=== PATIENT | male | born 1960 | race Caucasian/White ===

== ENCOUNTER 2018-04-05 06:42 | Inpatient (IN) ==
--- NOTE | 2018-04-04 23:32 | Discharge Summary ---
<Miladis Umaña - Last Filed: 04/04/18 23:29> Date of Encounter: 04/04/18 - Discharge Diagnosis (1) Loosening of shoulder joint prosthesis Priority: Primary Status: Acute Qualifiers: Encounter type: initial encounter Qualified Code(s): T84.038A - Mechanical loosening of other internal prosthetic joint, initial encounter; Z96.619 - Presence of unspecified artificial shoulder joint (2) Status post reverse total replacement of left shoulder Priority: Primary Status: Acute (3) Hx of shoulder replacement Priority: Primary Status: Acute Qualifiers: Laterality: left Qualified Code(s): Z96.612 - Presence of left artificial shoulder joint (4) COPD (chronic obstructive pulmonary disease) Priority: Secondary Status: Chronic Qualifiers: COPD type: unspecified COPD Qualified Code(s): J44.9 - Chronic obstructive pulmonary disease, unspecified (5) Hyperlipidemia Priority: Secondary Status: Chronic Qualifiers: Hyperlipidemia type: unspecified Qualified Code(s): E78.5 - Hyperlipidemia , unspecified (6) Hypertension Priority: Secondary Status: Chronic Qualifiers: Hypertension type: essential hypertension Qualified Code(s): I10 - Essential (primary) hypertension (7) Nicotine dependence Priority: Secondary Status: Chronic Qualifiers: Nicotine product type: unspecified Substance use status: uncomplicated Qualified Code(s): F17.200 - Nicotine dependence, unspecified, uncomplicated (8) PVD (peripheral vascular disease) Priority: Secondary Status: Chronic (9) CVA (cerebral vascular accident) Priority: Secondary Status: Chronic Qualifiers: CVA mechanism: unspecified Qualified Code(s): I63.9 - Cerebral infarction, unspecified (10) Seizure disorder Priority: Secondary Status: Chronic (11) CAD (coronary artery disease) Priority: Secondary Status: Chronic Qualifiers: Coronary Disease-Associated Artery/Lesion type: unspecified vessel or lesion type [place] vs. transplanted heart: [place] heart Associated angina: angina presence unspecified Qualified Code(s): I25.10 - Atherosclerotic heart disease of [place] coronary artery without angina pectoris (12) Pacemaker Priority: Secondary Status: Chronic - Hospital Course Hospital course: Mr. Quinteros is a 57 year old male - Time Spent with Patient Total time spent providing and/or coordinating discharge services: - Discharge Medications Home Medications: OxyCODONE Immed Rel [Roxicodone 5 MG] 5 mg PO Q6HR PRN 7 Days #28 tablet [Rx] Aripiprazole [Abilify] 15 mg PO HS 04/05/18 [History] Bisoprolol/HCTZ 5/6.25 [Ziac 5/6.25] 1 each PO DAILY 04/05/18 [History] Citalopram Hydrobromide [Citalopram HBr] 40 mg PO DAILY 04/05/18 [History] Clopidogrel [Plavix] 75 mg PO DAILY 04/05/18 [History] Dicyclomine [Bentyl] 10 mg PO TID 04/05/18 [History] Docusate Sodium [Dok] 100 mg PO BID 04/05/18 [History] Fenofibrate,Micronized [Fenofibrate] 130 mg PO DAILY 04/05/18 [History] Fluticasone Propionate Nasal [Flonase] 1 spr NS BID PRN 04/05/18 [History] Folic Acid 1 mg PO DAILY 04/05/18 [History] Gabapentin [Neurontin] 600 mg PO BID 04/05/18 [History] HYDROcodone/Acet 7.5/325 mg [[place] 7.5-325 mg] 1 tab PO QID PRN 04/05/18 [ History] Loratadine [Claritin] 10 mg PO DAILY 04/05/18 [History] Rosuvastatin Calcium 40 mg PO HS 04/05/18 [History] Sennosides [Senna] 8.6 mg PO DAILY 04/05/18 [History] Tamsulosin [Flomax] 0.4 mg PO DAILY 04/05/18 [History] Varenicline Tartrate [Chantix] 1 tab PO BID 04/05/18 [History] lamoTRIgine [Lamotrigine] 200 mg PO DAILY 04/05/18 [History] Allergies/Adverse Reactions: 3 Allergy/AdvReac Type Severity Reaction Status Date / Time trazodone AdvReac lethargy Verified 04/05/18 08:16 Primary care physician: Goldy Eric, - Patient Status Disposition: Home, Self-Care Condition: Good - Discharge Instructions Follow Up With: Goldy Eric MD [Primary Care Provider] - <Ac Patel - Last Filed: 04/06/18 06:57> Orders not resulted at time of discharge: Pending orders 04/05/18 00:01 XR shoulder complete LT [XR] Routine H/H [Hemoglobin and Hematocrit] [HEME] Routine Date of Encounter: 04/06/18 Time of Encounter: 06:56 - Discharge Diagnosis (1) Hx of shoulder replacement Priority: Secondary Status: Chronic Qualifiers: Laterality: left Qualified Code(s): Z96.612 - Presence of left artificial shoulder joint (2) COPD (chronic obstructive pulmonary disease) Priority: Secondary Status: Chronic Qualifiers: COPD type: unspecified COPD Qualified Code(s): J44.9 - Chronic obstructive pulmonary disease, unspecified (3) Hyperlipidemia Priority: Secondary Status: Chronic Qualifiers: Hyperlipidemia type: unspecified Qualified Code(s): E78.5 - Hyperlipidemia , unspecified (4) Hypertension Priority: Secondary Status: Chronic Qualifiers: Hypertension type: essential hypertension Qualified Code(s): I10 - Essential (primary) hypertension (5) Nicotine dependence Priority: Secondary Status: Chronic Qualifiers: Nicotine product type: unspecified Substance use status: uncomplicated Qualified Code(s): F17.200 - Nicotine dependence, unspecified, uncomplicated (6) PVD (peripheral vascular disease) Priority: Secondary Status: Chronic (7) CVA (cerebral vascular accident) Priority: Secondary Status: Chronic Qualifiers: CVA mechanism: unspecified Qualified Code(s): I63.9 - Cerebral infarction, unspecified (8) Seizure disorder Priority: Secondary Status: Chronic (9) CAD (coronary artery disease) Priority: Secondary Status: Chronic Qualifiers: Coronary Disease-Associated Artery/Lesion type: unspecified vessel or lesion type [place] vs. transplanted heart: [place] heart Associated angina: angina presence unspecified Qualified Code(s): I25.10 - Atherosclerotic heart disease of [place] coronary artery without angina pectoris (10) Pacemaker Priority: Secondary Status: Chronic (11) Loosening of shoulder joint prosthesis Priority: Secondary Status: Chronic Qualifiers: Encounter type: subsequent encounter Qualified Code(s): T84.038D - Mechanical loosening of other internal prosthetic joint, subsequent encounter; Z96.619 - Presence of unspecified artificial shoulder joint - Hospital Course Hospital course: Mr. Quinteros is a 57 year old male Status post revision left total shoulder replacement. The patient had an uneventful postoperative course. They received antibiotics and physical therapy and were discharged in stable condition. There will follow -up in the office in 2 weeks. - Time Spent with Patient Total time spent providing and/or coordinating discharge services: Primary care physician: Goldy Eric, - Patient Status Functional capacity at discharge: independent ambulation Overall status at discharge: patient is progressing back to baseline
--- NOTE | 2018-04-05 06:52 | History & Physical Report ---
Date of Encounter: 04/05/18 Time of Encounter: 06:52 24 Hour HP Update - Instructions Instructions: If the History and Physical is less than 30 days old and was completed prior to A.M. admission and or procedure and has NOT been updated on calendar day of procedure please complete this update prior to performing procedure. - Update Patient reports changes in Medical Condition: No Changes in examination, assessment, or condition: No Changes in Medication: No Preop tests/diagnostics Reviewed: Yes Surgery Remains Indicated: Yes Consent for Planned Operative Procedure(s) Verified: Yes - Pre-Operative Checklist Preoperative Checklist Indicated: No Prophylactic Antibiotic Ordered: Yes Is VTE Prophylaxis Indicated?: Yes
[2018-04-05] MEDS ORDERED: CeFAZolin Syr 2,000MG/20 ML 2,000 MG/20 ML SYRINGE IVPB ONE (07:59)
[2018-04-05] MEDS ORDERED: Albuterol 2.5 MG/3 ML NEBULIZER IH ONE (07:59)
[2018-04-05] MEDS ORDERED: Ringers Solution, Lactated 1,000 ML IVC SCH ×2 (08:00→12:52)
--- NOTE | 2018-04-05 08:32 | Anesthesia Evaluation PreOp ---
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: Seizures (last seizure more than 1 year ago, well controlled on medication), CVA (residual LUE weakness, plavix stopped 10 days) Other Medical History: Renal (H/O kidney stones), GERD Anesthesia History: No Prior Anesthetic Complications, Past Anesthesia Alcohol Use: none (quit heavy use 24 years ago) Drug use: other Medications and Allergies OxyCODONE Immed Rel [Roxicodone 5 MG] 5 mg PO Q6HR PRN 7 Days #28 tablet [Rx] Aripiprazole [Abilify] 15 mg PO HS 04/05/18 [History] Bisoprolol/HCTZ 5/6.25 [Ziac 5/6.25] 1 each PO DAILY 04/05/18 [History] Citalopram Hydrobromide [Citalopram HBr] 40 mg PO DAILY 04/05/18 [History] Clopidogrel [Plavix] 75 mg PO DAILY 04/05/18 [History] Dicyclomine [Bentyl] 10 mg PO TID 04/05/18 [History] Docusate Sodium [Dok] 100 mg PO BID 04/05/18 [History] Fenofibrate,Micronized [Fenofibrate] 130 mg PO DAILY 04/05/18 [History] Fluticasone Propionate Nasal [Flonase] 1 spr NS BID PRN 04/05/18 [History] Folic Acid [Folic Acid] 1 mg PO DAILY 04/05/18 [History] Gabapentin [Neurontin] 600 mg PO BID 04/05/18 [History] HYDROcodone/Acet 7.5/325 mg [[place] 7.5-325 mg] 1 tab PO QID PRN 04/05/18 [ History] Loratadine [Claritin] 10 mg PO DAILY 04/05/18 [History] Rosuvastatin Calcium [Rosuvastatin Calcium] 40 mg PO HS 04/05/18 [History] Sennosides [Senna] 8.6 mg PO DAILY 04/05/18 [History] Tamsulosin [Flomax] 0.4 mg PO DAILY 04/05/18 [History] Varenicline Tartrate [Chantix] 1 tab PO BID 04/05/18 [History] lamoTRIgine [Lamotrigine] 200 mg PO DAILY 04/05/18 [History] 3 Allergy/AdvReac Type Severity Reaction Status Date / Time trazodone AdvReac lethargy Verified 04/05/18 08:16 - Meds/Allergy Pre-op Review Medications Reviewed: Yes Allergies Reviewed: Yes Beta Blockers on Current Med List: Yes If Beta Blockers taken, Date/Time (Last Dose taken): 04/05/2018 at 0530 Anesthesia Results - Labs Laboratory Tests 03/31/18 03/31/18 03/31/18 15:28 15:28 15:28 WBC 6.9 Hgb 12.3 L Hct 38.9 Plt Count 249 PT 12.1 INR 1.1 APTT 38.1 H Sodium 136 Potassium 3.8 BUN 20 Creatinine 0.98 - Imaging EKG: report reviewed (04/05/2018 electronic atrial pacemaker) Anesthesia Exam O2 Sat Height 1.78 m Height 1.78 m Weight 75.296 kg Weight 75.296 kg O2 Sat by Pulse Oximetry 97 Vital Signs Temp Pulse Resp BP Pulse Ox 98.0 F 60 18 129/80 97 04/05/18 07:19 04/05/18 07:19 04/05/18 07:19 04/05/18 07:19 04/05/18 07:19 Height: 5'10" Weight: 166 lbs NPO (# of Hours): 8 Pain Scale: 0 Pain Scale Used: Numeric (1 - 10) - HEENT Pupil (Motor): EOMI Mallampati: II Teeth: Edentulous Denture Type: Upper: Complete, Lower: Complete Oral Opening: Greater than 3 - ANIMAL TRAPPER LOC: Oriented ANIMAL TRAPPER Motor: Normal RUE, Normal RLE, Normal LLE, Normal Face, Deficit LUE ANIMAL TRAPPER Sensory: Normal: RUE, LUE, RLE, LLE, Face - Cardiac Rhythm: Regular Murmur: None - Pulmonary Breath Sounds: bilateral Clear Respiratory Effort: Symmetrical Anesthesia Assess/Plan ASA Score: 4 Modified [place] Scale for Level of Consciousness: Cooperative, oriented, and tranquil Anesthetic Plan: General, Regional Monitoring Plan: Standard Monitors Recovery Plan: PACU
[2018-04-05] MEDS ORDERED: Bupivacaine/Clonidine Syringe 1 EACH SYRINGE ONE (09:18)
[2018-04-05] MEDS ORDERED: ROPIVACAINE HCL/PF 0.5% 30 ML VIAL ONE (09:18)
[2018-04-05] MEDS ORDERED: Dexamethasone 4 MG/ML VIAL ONE (09:19)
[2018-04-05] MEDS ORDERED: Ethanol\\Acetic Acid\\Na Ace\\Ben 1,000 ML IRRIG.SOLN IR ONE (09:32)
--- NOTE | 2018-04-05 09:44 | Anesthesia Procedures ---
Date of Encounter: 04/05/18 Time of Encounter: 09:42 Procedures: Anesthesia - Nerve Block Procedure Date: 04/05/18 Time: 09:42 Allergies/Adv Reactions: trazadone Pre-op Diagnosis: L shoulder aseptic loosening Surgical Procedure: L TSR, revision Checklist: Correct Patient Identifier, Correct procedure, History checked Correct side: Left Blood Thinner: No Monitor Applied: EKG, BP, Pulse Oximetry Supplemental Oxygen via Nasal Cannula (L/min): 3 Sedation: Versed (mg): 2 Sedation: Fentanyl (mcg): 100 Indication: Post Op Analgesia (requested by Dr. Patel) Pre-op Neuro Deficits: Yes (LUE weakness from previous CVA) Block Type: Supraclavicular, Other (ICB, SCP) Catheter placed: No Sterile Technique: Yes Ultrasound used: Yes Anatomy identified: Yes Visual spread of Local: Yes Neuro Stimulation: No Blood on Needle Aspiration: No Smooth Injection of Local: Yes Pain with Injection of Local: No Prep: Chlorhexadine Needle: 22 x 50 mm Stimuplex Local: 0.25% Bupivicaine w/Clonidine 20 mcg/cc, Ropivacaine (0.5%, 30mL) Volume (cc): 7.5mL SCP, 7.5mL ICB Number of Attempts: 1 Complications: None/effective block Vitals: please see "holding vital signs" note
[2018-04-05] MEDS ORDERED: *HR* OxyCODONE Immed Rel 5 MG TABLET PO PRN (09:47)
[2018-04-05] MEDS ORDERED: Lidocaine -MPF 2% 2 ML VIAL ONE (10:12)
[2018-04-05] MEDS ORDERED: *HR* Midazolam HCl 2 MG/2 ML VIAL ONE (10:12)
[2018-04-05] MEDS ORDERED: *HR* Succinylcholine 200 MG/10 ML VIAL IVP ONE (10:12)
[2018-04-05] MEDS ORDERED: *HR* Propofol 200 MG/20 ML VIAL IVP ONE (10:12)
[2018-04-05] MEDS ORDERED: Lidocaine -MPF 4% 5 ML AMPUL ONE (10:12)
[2018-04-05] MEDS ORDERED: *HR* FentaNYL (PF) 100 MCG/2 ML VIAL ONE (10:12)
[2018-04-05] MEDS ORDERED: *HR* PHENYLEPHRINE 1,000 MCG/10 ML SYRINGE IVP ONE (10:21)
[2018-04-05] MEDS ORDERED: EPHEDrine 50 MG/ML VIAL ONE (10:28)
[2018-04-05] MEDS ORDERED: Ondansetron 4 MG/2 ML VIAL ONE (11:17)
--- NOTE | 2018-04-05 11:28 | Orthopedic Operative Note ---
Date of procedure: 04/05/18 Pre-op diagnosis: Aseptic loosening left total shoulder Post-op diagnosis: same Procedure: Procedure: Left Revision Total Shoulder replacement reverse Estimated blood loss: 100 cc Hardware: Arthrex: Metal and plastic: 42+4 sphere, large baseplate, one 6.5 locking screw, 2, 4.5 locking screws. 11 humeral stem 9 metal spacer 3 constrained Patricia spacer Procedural Notes:Loosening of glenoid component. Operative procedure: The patient was brought to the operating room and placed on the operating room table. The patient was placed in the modified beachchair position. All pressure points were padded appropriately. And the head was stabilized in the neutral position. The operative extremity was prepped and draped in the sterile surgical fashion. The patient received IV antibiotics prior to skin incision. A standard deltopectoral approach was made to the operative shoulder. Incision was made through the old incision, through the skin and subcutaneous tissue, hemo stasis was obtained with Bovie cautery. Using careful blunt dissection the deltopectoral interval was developed and the clavipectoral fascia was incised. An extensive debridement was performed, and the shoulder was dislocated. The humeral component was disassembled, and the humeral stem was removed without incident. Attention was then turned to the glenoid component was removed with the extractor it was grossly loose. Extensive debridement of the glenoid was performed the glenoid guide was positioned and inferior position was prepared first with the post reamer followed by the peripheral reamer. The large baseplate was seated and secured with a central 35 compression screw 6.5 in diameter, and 2.5 locking screws. Prior to seating the baseplate the defect behind baseplate was packed with bone and cancellus chips. The 42 Rosa V was seated and secured with the Perez taper. The humerus was broached up to its appropriate size 11 in 20 degrees of retroversion. Trial reduction found the shoulder to be relocatable. Trial components were removed, real implants were seated. Trial reduction found the shoulder to be stable with the 9 metal spacer and 3 constrained Patricia spacer implants. The trial implants were removed the real implants were seated and secured in the shoulder was reduced. The patient had excellent motion and excellent stability no shuck. The shoulder was closed by the PA. The deep tissue was irrigated with pulse irrigation deltopectoral interval was closed with #2 PDS suture over Gelfoam soaked in vancomycin. Superficially the subcutaneous tissue was closed with 0 PDS suture, the skin was closed with Dermabond. The patient placed sterile dressing, postoperative brace extubated and transferred to the recovery room in stable condition. Anesthesia: AYDEA Surgeon: Ac Patel Was there an medical administrative assistant present: Yes Offset Duplicating Machine Operator: Denae Mace Estimated blood loss (cc): 100 Condition: stable Disposition: PACU
[2018-04-05 12:12] LABS: Hematocrit 34.8 % (37.5-50.1); Hemoglobin 11.3 g/dL (12.9-16.9)
[2018-04-05] MEDS ORDERED: Fluticasone Propionate Nasal 50 MCG/SPRAY BOTTLE NS PRN (12:52)
[2018-04-05] MEDS ORDERED: Naloxone 0.4 MG/ML INJ IVP PRN (12:52)
[2018-04-05] MEDS ORDERED: Ondansetron 4 MG/2 ML VIAL IVP PRN (12:52)
[2018-04-05] MEDS ORDERED: Sennosides 8.6 MG TABLET PO PRN (12:52)
[2018-04-05] MEDS ORDERED: traMADol 50 MG TABLET PO PRN (12:52)
[2018-04-05] MEDS ORDERED: *HR* OxyCODONE/APAP 5/325 TABLET PO PRN (12:52)
[2018-04-05] MEDS ORDERED: MOM Conc 10 ML UD.LIQ PO PRN (12:52)
[2018-04-05] MEDS ORDERED: Temazepam 15 MG CAPSULE PO PRN (12:52)
--- NOTE | 2018-04-05 14:04 | Physician Discharge Referral ---
Home Health/Hosp Referral Info Transfer to: Home Health Attending Provider: Provider in Charge Post Discharge: PCP - Diagnosis (1) Loosening of shoulder joint prosthesis Priority: Primary Status: Chronic (2) Status post reverse total replacement of left shoulder Priority: Primary Status: Acute (3) Hx of shoulder replacement Priority: Primary Status: Chronic (4) COPD (chronic obstructive pulmonary disease) Priority: Secondary Status: Chronic (5) Hyperlipidemia Priority: Secondary Status: Chronic (6) Hypertension Priority: Secondary Status: Chronic (7) Nicotine dependence Priority: Secondary Status: Chronic (8) PVD (peripheral vascular disease) Priority: Secondary Status: Chronic (9) CVA (cerebral vascular accident) Priority: Secondary Status: Chronic (10) Seizure disorder Priority: Secondary Status: Chronic (11) CAD (coronary artery disease) Priority: Secondary Status: Chronic (12) Pacemaker Priority: Secondary Status: Chronic (13) Chronic pain Priority: Secondary Status: Chronic - Respiratory Orders None Smoking Cessation: Smoking cessation has been advised. For more information, call the [employer] Tobacco Quit Line at 6-261-UHSV-NOW. - Diet/Nutrition Diet/Nutrition Orders: Regular - Activity Activity Orders: Up ad maryanne, Ambulate - Services Needed Following services are medically necessary services: Nursing, Home Health Aide, Occupational Therapy Home Care Orders: Rehab orders for total shoulder: PT/OT. NO SHOULDER MOTION, ELBOW MOTION OK. Hand/Processing Spec motion ok. NWB to affected upper extremity. Follow Shoulder Precautions x 6 weeks. Stay in brace during activity and at night. ICE and elevate extremity frequently throughout the day. Treatments: [place] in place, plan to remove at post-operative day #14-16. Opsite placed. Keep dressing intact until first follow up appointment. If > 50% saturated, notify office, remove dressing and place appropriate dressing back in place. Leave Zipline intact. Opsite dressing is water resistant, not water- proof. OK to shower, but do not get dressing wet. - Transfer Medications Home Medications: OxyCODONE Immed Rel [Roxicodone 5 MG] 5 mg PO Q6HR PRN 7 Days #28 tablet [Rx] Aripiprazole [Abilify] 15 mg PO HS 04/05/18 [History] Bisoprolol/HCTZ 5/6.25 [Ziac 5/6.25] 1 each PO DAILY 04/05/18 [History] Citalopram Hydrobromide [Citalopram HBr] 40 mg PO DAILY 04/05/18 [History] Clopidogrel [Plavix] 75 mg PO DAILY 04/05/18 [History] Dicyclomine [Bentyl] 10 mg PO TID 04/05/18 [History] Docusate Sodium [Dok] 100 mg PO BID 04/05/18 [History] Fenofibrate,Micronized [Fenofibrate] 130 mg PO DAILY 04/05/18 [History] Fluticasone Propionate Nasal [Flonase] 1 spr NS BID PRN 04/05/18 [History] Folic Acid 1 mg PO DAILY 04/05/18 [History] Gabapentin [Neurontin] 600 mg PO BID 04/05/18 [History] HYDROcodone/Acet 7.5/325 mg [[place] 7.5-325 mg] 1 tab PO QID PRN 04/05/18 [ History] Loratadine [Claritin] 10 mg PO DAILY 04/05/18 [History] Rosuvastatin Calcium 40 mg PO HS 04/05/18 [History] Sennosides [Senna] 8.6 mg PO DAILY 04/05/18 [History] Tamsulosin [Flomax] 0.4 mg PO DAILY 04/05/18 [History] Varenicline Tartrate [Chantix] 1 tab PO BID 04/05/18 [History] lamoTRIgine [Lamotrigine] 200 mg PO DAILY 04/05/18 [History] Allergies/Adverse Reactions: 3 Allergy/AdvReac Type Severity Reaction Status Date / Time trazodone AdvReac lethargy Verified 04/05/18 08:16 Certification: Further, I certify that my clinical findings support that this patient is homebound (i.e. absences from home require considerable and taxing effort and are for medical reasons or hoahaoism services or infrequently or short duration when for other reasons) because: Homebound Reason: Post-surgery restriction and or conditions limit ability to leave home, Leaving home requires considerable and taxing effort due to condition Attestation: My signature below is to certify that this patient is under my care and that I, or nurse practitioner, or a physician's phlebotomist medical lab assistant working with me, has a face-to -face encounter with this patient.
--- NOTE | 2018-04-05 14:50 | Anesthesia Evaluation Post Op ---
Date of Encounter: 04/05/18 Time of Encounter: 12:30 - Vital Signs Vital Signs: Vital Signs Temp Pulse Resp BP Pulse Ox 04/05/18 12:21 97.7 F 64 16 124/75 98 04/05/18 12:11 67 16 120/74 95 04/05/18 12:01 97.7 F 69 16 117/71 98 04/05/18 11:51 74 16 121/84 98 04/05/18 11:41 80 16 127/87 98 04/05/18 11:31 97.8 F 87 16 137/79 100 Intake and Output 04/04/18 04/05/18 04/05/18 23:59 07:59 15:59 Intake Total 20 / 20 Output Total 100 / 100 Balance -80 / -80 Intake: IV Fluids 20 / 20 Ancef Syringe 2,000 MG/20 ML 2, 20 / 20 000 mg In 20 ml @ 200 mls/hr IVPB PREOP ONE Rx#:[id number] Output: Estimated Blood Loss 100 / 100 Other: Weight 75.296 kg Patient Weight 04/05/18 23:59 Weight 75.296 kg - Lungs Lungs: Clear Ascult./Percussion - Airway Airway: Non-obstructed - Cardiovascular Regular Rate - Mental Status Mental Status: Alert & Oriented, Answers Appropriately - Pain Pain Scale: 5 Pain Scale used: Numeric (1 - 10) - Nausea Vomiting Nausea Vomiting: Not Present - Hydration Hydration: Tolerates oral liquids, Has not voided - Discharge PostOp Status: Transfer Patient to floor Anes Supervising Prov Stmt: Pt seen/evaluated, VSS and pt has met criteria for discharge to home. - MD Randall
--- NOTE | 2018-04-05 16:22 | Electrocardiograph Report ---
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
[2018-04-05] MEDS: *HR* Enoxaparin 30 MG/0.3 ML SYRINGE SQ SCH (16:57)
[2018-04-05] MEDS: *HR* OxyCODONE Immed Rel 5 MG TABLET PO PRN (17:04)
[2018-04-05] MEDS ORDERED: *HR* Enoxaparin 30 MG/0.3 ML SYRINGE SQ SCH (18:00)
[2018-04-05] MEDS: Gabapentin 300 MG CAPSULE PO SCH (20:26)
[2018-04-05] MEDS ORDERED: ARIPiprazole 10 MG TABLET PO SCH (21:00)
[2018-04-06 02:08] LABS: Hematocrit 31.8 % (37.5-50.1); Hemoglobin 10.2 g/dL (12.9-16.9)
[2018-04-06] MEDS: *HR* Enoxaparin 30 MG/0.3 ML SYRINGE SQ SCH (05:09)
--- NOTE | 2018-04-06 06:58 | Orthopedics Progress Note ---
Date of Encounter: 04/06/18 Time of Encounter: 06:57 - Assessment and Plan (1) Hx of shoulder replacement Current Visit: No Status: Chronic Qualifiers: Laterality: left Qualified Code(s): Z96.612 - Presence of left artificial shoulder joint (2) COPD (chronic obstructive pulmonary disease) Current Visit: No Status: Chronic Qualifiers: COPD type: unspecified COPD Qualified Code(s): J44.9 - Chronic obstructive pulmonary disease, unspecified (3) Hyperlipidemia Current Visit: No Status: Chronic Qualifiers: Hyperlipidemia type: unspecified Qualified Code(s): E78.5 - Hyperlipidemia , unspecified (4) Hypertension Current Visit: No Status: Chronic Qualifiers: Hypertension type: essential hypertension Qualified Code(s): I10 - Essential (primary) hypertension (5) Nicotine dependence Current Visit: No Status: Chronic Qualifiers: Nicotine product type: unspecified Substance use status: uncomplicated Qualified Code(s): F17.200 - Nicotine dependence, unspecified, uncomplicated (6) PVD (peripheral vascular disease) Current Visit: No Status: Chronic (7) CVA (cerebral vascular accident) Current Visit: No Status: Chronic Qualifiers: CVA mechanism: unspecified Qualified Code(s): I63.9 - Cerebral infarction, unspecified (8) Seizure disorder Current Visit: No Status: Chronic (9) CAD (coronary artery disease) Current Visit: No Status: Chronic Qualifiers: Coronary Disease-Associated Artery/Lesion type: unspecified vessel or lesion type [place] vs. transplanted heart: hoh heart Associated angina: angina presence unspecified Qualified Code(s): I25.10 - Atherosclerotic heart disease of hoh coronary artery without angina pectoris (10) Pacemaker Current Visit: No Status: Chronic (11) Loosening of shoulder joint prosthesis Current Visit: No Status: Chronic Qualifiers: Encounter type: subsequent encounter Qualified Code(s): T84.038D - Mechanical loosening of other internal prosthetic joint, subsequent encounter; Z96.619 - Presence of unspecified artificial shoulder joint Subjective Interval history: Patient was seen this morning doing well without complaints. Afebrile vital signs stable. Operative extremity: Neurovascularly intact Dressing clean dry and intact [place] nontender Assessment and plan: Continue with postoperative care Hematocrit 31 discharged today Objective Vital signs: Vital Signs Temp Pulse Resp BP Pulse Ox 04/06/18 06:36 96.7 F L 100 13 127/55 92 04/06/18 03:23 98.1 F 57 16 136/81 95 04/05/18 23:11 98.2 F 66 16 136/70 94 04/05/18 18:16 97.9 F 80 93 111/70 04/05/18 16:14 97.8 F 65 16 96/58 93 04/05/18 15:23 97.6 F 69 18 107/69 97 04/05/18 14:01 97.6 F 66 18 96/61 95 04/05/18 13:20 97.8 F 74 18 105/68 96 04/05/18 12:53 95 04/05/18 12:40 97.7 F 61 18 105/63 93 04/05/18 12:21 97.7 F 64 16 124/75 98 04/05/18 12:11 67 16 120/74 95 04/05/18 12:01 97.7 F 69 16 117/71 98 04/05/18 11:51 74 16 121/84 98 04/05/18 11:41 80 16 127/87 98 04/05/18 11:31 97.8 F 87 16 137/79 100 04/05/18 09:57 62 116/74 97 04/05/18 09:41 60 120/75 97 04/05/18 09:32 60 137/96 96 04/05/18 08:33 18 129/80 97 04/05/18 07:19 98.0 F 60 18 129/80 97 Intake and Output 04/05/18 04/05/18 04/06/18 15:59 23:59 07:59 Intake Total 20 / 20 350 / 350 100 / 100 Output Total 100 / 100 Balance -80 / -80 350 / 350 100 / 100 Intake: IV Fluids 20 / 20 100 / 100 100 / 100 Ancef Syringe 2,000 MG/20 ML 2, 20 / 20 000 mg In 20 ml @ 200 mls/hr IVPB PREOP ONE Rx#:[id number] Ancef 2,000 MG In 0.9 % Sodium 100 / 100 100 / 100 Chloride 100 ML @ 200 mls/hr IVPB Q8H GAIL Rx#:[id number] Oral 250 / 250 Output: Estimated Blood Loss 100 / 100 Other: # Voids 1 1 1 - Labs CBC & BMP: 04/06/18 01:03 Labs: Abnormal lab results Hgb 10.2 g/dL (12.9-16.9) L 04/06/18 01:03 Hct 31.8 % (37.5-50.1) L 04/06/18 01:03 - VTE Documentation of Mechanical Device: Venous foot pump, device Consult Discharge Plan - Plan Referrals: Goldy Eric MD [Primary Care Provider] -
[2018-04-06] MEDS: Gabapentin 300 MG CAPSULE PO SCH (08:57)
[2018-04-06] MEDS ORDERED: Loratadine 10 MG TABLET PO SCH (09:00)
[2018-04-06] MEDS ORDERED: Folic Acid 1 MG TABLET PO SCH (09:00)
[2018-04-06] MEDS ORDERED: lamoTRIgine 100 MG TABLET PO SCH (09:00)
[2018-04-06] MEDS ORDERED: Bisoprolol/HCTZ 5/6.25 TABLET PO SCH (09:00)
[2018-04-06] MEDS ORDERED: Fenofibrate 54 MG TABLET PO SCH (09:00)
[2018-04-06] MEDS ORDERED: Sennosides 8.6 MG TABLET PO SCH (09:00)
[2018-04-06] MEDS: *HR* OxyCODONE Immed Rel 5 MG TABLET PO PRN (09:51)
[2018-04-06 10:38] VITALS: BP 119/71
== END 2018-04-06 11:09 | disposition home or self-care (01) | DRG 315 ==
LOC: SAMDAY 06:42 → 3NENU 12:53
PROVIDERS: ADMIT Orthopaedic Surgery; ATTEND Orthopaedic Surgery

== ENCOUNTER 2019-10-10 12:17 | Inpatient (IN) ==
[2019-10-10] MEDS ORDERED: Albuterol 2.5 MG/3 ML NEBULIZER IH PRN (12:43)
[2019-10-10] MEDS ORDERED: Ringers Solution, Lactated 1,000 ML IVC SCH ×2 (12:45→19:02)
[2019-10-10] MEDS ORDERED: Ethanol\\Acetic Acid\\Na Ace\\Ben 1,000 ML IRRIG.SOLN IR ONE ×2 (13:06→17:02)
[2019-10-10] MEDS ORDERED: Ondansetron 4 MG/2 ML VIAL IVP ONE (13:21)
[2019-10-10] MEDS ORDERED: *HR* OxyCODONE Immed Rel 5 MG TABLET PO PRN ×2 (13:21→19:02)
[2019-10-10] MEDS ORDERED: *HR* Midazolam HCl 2 MG/2 ML VIAL ONE (14:16)
[2019-10-10] MEDS ORDERED: *HR* FentaNYL (PF) 100 MCG/2 ML VIAL ONE (14:16)
[2019-10-10] MEDS ORDERED: *HR* Propofol 200 MG/20 ML VIAL IVP ONE (14:16)
[2019-10-10] MEDS ORDERED: Lidocaine -MPF 2% 2 ML VIAL ONE (14:18)
[2019-10-10] MEDS ORDERED: Dexamethasone 4 MG/ML VIAL ONE (14:18)
[2019-10-10] MEDS ORDERED: *HR* Succinylcholine 200 MG/10 ML VIAL IVP ONE (14:18)
[2019-10-10] MEDS ORDERED: Ondansetron 4 MG/2 ML VIAL ONE (14:18)
[2019-10-10] MEDS ORDERED: Ropivacaine/PF 0.5% 30 ML VIAL ONE (15:01)
[2019-10-10] MEDS ORDERED: ROPIVACAINE/PF/NS 0.25% 1 EACH SYRINGE INTRAART ONE (15:01)
[2019-10-10] MEDS ORDERED: *HR* PHENYLEPHRINE 1,000 MCG/10 ML SYRINGE IVP ONE (16:42)
[2019-10-10] MEDS: *HR* HYDROmorphone (PF) 1 MG/ML SYRINGE IVP PRN ×3 (17:44→18:09)
[2019-10-10] MEDS ORDERED: *HR* Enoxaparin 30 MG/0.3 ML SYRINGE SQ SCH (18:00)
[2019-10-10 18:27] LABS: Hematocrit 32.7 % (37.5-50.1); Hemoglobin 10.2 g/dL (12.9-16.9)
[2019-10-10] MEDS ORDERED: MOM Conc 10 ML UD.LIQ PO PRN (19:02)
[2019-10-10] MEDS ORDERED: Naloxone 0.4 MG/ML INJ IVP PRN (19:02)
[2019-10-10] MEDS ORDERED: Ondansetron 4 MG/2 ML VIAL IVP PRN (19:02)
[2019-10-10] MEDS ORDERED: *HR* OxyCODONE/APAP 5/325 TABLET PO PRN (19:02)
[2019-10-10] MEDS ORDERED: Famotidine 20 MG TABLET PO PRN (19:02)
[2019-10-10] MEDS ORDERED: Sennosides 8.6 MG TABLET PO PRN (19:02)
[2019-10-10] MEDS ORDERED: Temazepam 15 MG CAPSULE PO PRN (19:02)
[2019-10-10] MEDS ORDERED: Sennosides 8.6 MG TABLET PO SCH (21:00)
[2019-10-10] MEDS ORDERED: ARIPiprazole 5 MG TABLET PO SCH (21:00)
[2019-10-10] MEDS ORDERED: lamoTRIgine 100 MG TABLET PO SCH (21:00)
[2019-10-10] MEDS: Gabapentin 300 MG CAPSULE PO SCH (22:23)
[2019-10-11] MEDS ORDERED: *HR* Enoxaparin 30 MG/0.3 ML SYRINGE SQ SCH (06:00)
[2019-10-11 06:58] VITALS: BP 139/76
[2019-10-11 07:10] LABS: Hematocrit 30.8 % (37.5-50.1); Hemoglobin 9.7 g/dL (12.9-16.9)
[2019-10-11 07:27] LABS: BUN/Creatinine Ratio 21 (6-26); Blood Urea Nitrogen 22 mg/dL (8-23); Calcium 9.1 mg/dL (8.6-10.3); Carbon Dioxide 23 mEq/L (23-29); Chloride 105 mEq/L (98-107); Glucose 166 mg/dL (70-105); Osmolality,Calculated 289 (280-300); Sodium 136 mEq/L (136-145); eGFR For African Americans > 60 (> 60); eGFR For Non-African Americans > 60 (> 60)
[2019-10-11] MEDS ORDERED: Loratadine 10 MG TABLET PO SCH (09:00)
[2019-10-11] MEDS ORDERED: Aspirin Enteric Coated 81 MG Tablet PO SCH (09:00)
[2019-10-11] MEDS ORDERED: Folic Acid 1 MG TABLET PO SCH (09:00)
[2019-10-11] MEDS ORDERED: Fenofibrate 54 MG TABLET PO SCH (09:00)
[2019-10-11] MEDS: Gabapentin 300 MG CAPSULE PO SCH (09:32)
== END 2019-10-11 10:10 | disposition home or self-care (01) | DRG 322 ==
LOC: SAMDAY 12:17 → 3NENU 19:01
PROVIDERS: ADMIT Orthopaedic Surgery; ATTEND Orthopaedic Surgery